=== PATIENT | female | born 1950 | race Caucasian/White ===

== ENCOUNTER → 2018-03-26 | Outpatient (CLI) | payer MEDICARE, OTHER ==
[~2018-03-26] MED LIST: CALC-126 PO; CALC0.5C2 PO; CETI10CA PO; CYCL1DRO; ESTR1.743; ESTR1TAB15 PO; LEVO100T5 PO; MAGN400T7 PO; POLY17PO5 PO; SENN-87 PO; [UNRECOGNIZED DRUG - CODE] SC; vitamin b-12 SC
== END | disposition home or self-care (01) ==
LOC: STAR 12:31
PROVIDERS: ATTEND Obstetrics & Gynecology Female Pelvic Medicine and Reconstructive Surgery
DX: Z01.818 Encounter for other preprocedural examination (principal); N81.10 Cystocele, unspecified; N39.3 Stress incontinence (female) (male); R10.2 Pelvic and perineal pain
CPT/HCPCS: 93005

== ENCOUNTER 2018-04-07 10:00 | Day surgery (SDC) | payer MEDICARE, OTHER ==
[~2018-04-07] VITALS: Ht 172.7 cm; Wt 76.6 kg
[2018-04-07] MEDS ORDERED: LACTATED RINGERS 1,000 ML IV SCH (11:16)
[2018-04-07 11:19] VITALS: BP 131/81
[2018-04-07] MEDS ORDERED: BUPIVACAINE 0.25% ONE (12:09)
[2018-04-07] MEDS ORDERED: EPINEPHRINE 1 MG/ML, 1ML ONE (12:09)
[2018-04-07] MEDS ORDERED: NEOMY/POLYMYXIN B GU IRR. 1 ML IRRIG ONE (12:09)
[2018-04-07] MEDS ORDERED: FENTANYL PF 100 MCG/2ML ONE ×2 (12:42→14:08)
[2018-04-07] MEDS ORDERED: MIDAZOLAM 1 MG/ML, 2ML ONE (12:42)
[2018-04-07] MEDS ORDERED: ONDANSETRON 2MG/ML, 2ML ONE (12:52)
[2018-04-07] MEDS ORDERED: LIDOCAINE 2% 100MG/5ML SYRINGE ONE (12:52)
[2018-04-07] MEDS ORDERED: CEFAZOLIN 1,000 MG ONE (12:52)
[2018-04-07] MEDS ORDERED: DEXAMETHASONE 4 MG/ML, 1ML ONE (12:52)
[2018-04-07] MEDS ORDERED: PROPOFOL 10 MG/ML, 20ML ONE (12:52)
[2018-04-07] MEDS ORDERED: METOCLOPRAMIDE 5 MG/ML, 2ML ONE (12:52)
[2018-04-07] MEDS ORDERED: LABETALOL 5MG/ML, 20ML IV PRN (14:00)
[2018-04-07] MEDS ORDERED: OXYcodone 5 MG/5 ML ORAL.SOL UDC PO PRN (14:00)
[2018-04-07] MEDS ORDERED: MIDAZOLAM 1 MG/ML, 2ML IV PRN (14:00)
[2018-04-07] MEDS ORDERED: ONDANSETRON 2MG/ML, 2ML IVPush PRN (14:00)
[2018-04-07] MEDS ORDERED: FENTANYL PF 100 MCG/2ML IV PRN (14:00)
[2018-04-07] MEDS ORDERED: MEPERIDINE/PF 25MG/0.5ML IVPush PRN (14:00)
[2018-04-07] MEDS ORDERED: HYDROmorphone 1 MG/ML, 1ML IV PRN (14:00)
[2018-04-07] MEDS ORDERED: ACETAMINOPHEN 650 MG/20.3 ML UDC ONE (14:08)
[2018-04-07] MEDS ORDERED: ACETAMINOPHEN 325 MG TABLET ONE (14:09)
[2018-04-07] MEDS ORDERED: OXYcodone 5 MG/5 ML ORAL.SOL UDC ONE (14:09)
[2018-04-07] MEDS ORDERED: ACETAMINOPHEN 325 MG TABLET PO ONE (14:30)
== END 2018-04-07 15:45 | disposition home or self-care (01) ==
LOC: OUT 10:00
PROVIDERS: ATTEND Obstetrics & Gynecology Female Pelvic Medicine and Reconstructive Surgery
DX: N81.89 Other female genital prolapse (principal); N39.46 Mixed incontinence; D64.9 Anemia, unspecified; E03.9 Hypothyroidism, unspecified; Z85.820 Personal history of malignant melanoma of skin; Z87.39 Personal history of other diseases of the musculoskeletal system and connective tissue; Z98.890 Other specified postprocedural states; Z90.710 Acquired absence of both cervix and uterus
CPT/HCPCS: 57265; 57282; 57288; C1771; J0171; J0690; J1100; J2250; J2405; J2704; J2765; J3490; J3010